=== PATIENT | female | born 1990 | race African-American/Black ===

== ENCOUNTER 2016-09-17 18:49 | Emergency (ER) | payer OTHER ==
[~2016-09-17] VITALS: Ht 154.9 cm; Wt 74.8 kg
[~2016-09-17 18:49] MED LIST: APAP500 PO; ASPIR 8181 MG PO; AZITHROMYCIN 2250 MG PO; DOXYCYCLINE 10100 MG PO; FLAGYL500 MG PO; NORCO 5-325 TA1 EACH PO; PRENATAL COMPL1 EACH PO; PRENATAL PO; TRINATE TABLET1 TAB PO
[2016-09-17 19:30] LABS: URINE BILIRUBIN NEGATIVE (Negative); URINE BLOOD 1+ (Negative); URINE COLOR YELLOW; URINE GLUCOSE-RANDOM* NEGATIVE (Negative); URINE KETONES NEGATIVE (Negative); URINE NITRITE NEGATIVE (Negative); URINE PROTEIN (DIPSTICK) TRACE (Negative); URINE UROBILINOGEN 0.2 E.U./dl (0.2-1.0)
[2016-09-17 19:42] LABS: SQUAMOUS 4-10 Moderate /LPF (0-3); URINE RBC 0-2 Rare /HPF (0-2); URINE WBC 0-5 Rare /HPF (0-5)
[2016-09-17 19:43] LABS: CASTS None Seen /LPF (None Seen); CRYSTALS None Seen /LPF (None Seen)
[2016-09-17 20:55] VITALS: BP 113/76
[2016-09-18 16:08] LABS: CHLAMYDIA TRACHOMATIS-PCR Negative (Negative); NEISSERIA GONORRHEA-PCR Negative (Negative)
== END 2016-09-17 20:56 | disposition home or self-care (01) ==
LOC: ER 18:49
PROVIDERS: Physician Assistant
DX: N89.8 Other specified noninflammatory disorders of vagina (principal); Z11.3 Encounter for screening for infections with a predominantly sexual mode of transmission

== ENCOUNTER 2017-01-11 08:40 | Emergency (ER) | payer OTHER ==
[~2017-01-11] VITALS: Ht 154.9 cm; Wt 74.8 kg
[2017-01-11 09:13] LABS: URINE BILIRUBIN NEGATIVE (Negative); URINE BLOOD TRACE (Negative); URINE COLOR YELLOW; URINE GLUCOSE-RANDOM* NEGATIVE (Negative); URINE KETONES NEGATIVE (Negative); URINE NITRITE NEGATIVE (Negative); URINE PROTEIN (DIPSTICK) TRACE (Negative); URINE SPECIFIC GRAVITY 1.025 (1.003-1.035); URINE UROBILINOGEN 0.2 E.U./dl (0.2-1.0)
[2017-01-11 09:29] LABS: SQUAMOUS >10 Many /LPF (0-3)
[2017-01-11 09:30] LABS: BACTERIA 1-9 Few /HPF (None Seen); CASTS None Seen /LPF (None Seen); CRYSTALS None Seen /LPF (None Seen); URINE RBC 0-2 Rare /HPF (0-2)
[2017-01-11] MEDS ORDERED: BACTRIM DS TAB1 EACH PO (09:39)
[2017-01-11] MEDS ORDERED: FLAGYL500 MG PO (09:39)
[2017-01-11 10:20] VITALS: BP 122/80
[2017-01-14 17:10] LABS: CHLAMYDIA TRACHOMATIS-PCR Negative (Negative); NEISSERIA GONORRHEA-PCR Negative (Negative)
== END 2017-01-11 10:22 | disposition home or self-care (01) ==
LOC: ER 08:40
PROVIDERS: Nurse Practitioner
DX: A59.01 Trichomonal vulvovaginitis (principal); N39.0 Urinary tract infection, site not specified; F10.99 Alcohol use, unspecified with unspecified alcohol-induced disorder

== ENCOUNTER → 2017-10-15 | Outpatient (CLI) | payer OTHER ==
[~2017-10-15] MED LIST changes: +BACTRIM DS TAB1 EACH PO
--- NOTE | ~2017-10-15 | 2DMMODE ---
[facility] [place] [address] 2 D/M-MODE ECHOCARDIOGRAM Name: PRABHJOT AMOS Room #: [facility]#: [id number] Admission: 10/15/17 Attend Phys: Gladys Ruiz DNP Discharge: Date of : 89 Date of Service: 10/15/17 1222 Report #: [id number] THIS REPORT FOR: //name// APPROVED REPORT Study performed: 10/15/2017 10:51:50 EXAM: Comprehensive 2D, Doppler, and color-flow Echocardiogram Patient Location: Out-Patient Status: routine BSA: 1.81 HR: 70 bpm BP: 136/84 mmHg Rhythm: NSR Other Information Study Quality: Adequate Indications Murmur 2D Dimensions RVDd: 24.90 mm LVEF(%): 61.58 (>50%) IVSd: 6.10 (7-11mm) LVOT Diam: 19.57 (18-24mm) LVDd: 49.40 mm PWd: 7.71 (7-11mm) Ascending Ao: 19.99 (22-36mm) LVDs: 33.01 (25-40mm) Aortic Root: 20.57 mm IVC: 18.00 mm Pizano's LVEF: 61.58 % Volumes Left Atrial Volume (Systole) Single Plane 4CH: 33.64 mL Single Plane 2CH: 33.68 mL LA ESV Index: 21.00 mL/m2 Aortic Valve AoV Peak Venkata.: 1.73 m/s AO Peak Gr.: 11.97 mmHg LVOT Max P.97 mmHg LVOT Max V: 1.12 m/s LENA Vmax: 1.94 cm2 Mitral Valve E/A Ratio: 2.5 MV Decel. Time: 261.07 ms [facility] [place] [address] 2 D/M-MODE ECHOCARDIOGRAM Name: PRABHJOT AMOS Room #: [facility]#: [id number] Admission: 10/15/17 Attend Phys: Gladys Ruiz DNP Discharge: Date of : 89 Date of Service: 10/15/17 1222 Report #: [id number] MV E Max Venkata.: 1.34 m/s MV A Venkata.: 0.54 m/s MV PHT: 75.71 ms IVRT: 55.36 ms Pulmonary Valve PV Peak Venkata.: 1.47 m/s PV Peak Gr.: 8.63 mmHg Pulmonary Vein P Vein S: 0.69 m/s P Vein A: 0.23 m/s P Vein D: 0.51 m/s P Vein A Dur.: 106.1 msec P Vein S/D Ratio: 1.35 Tricuspid Valve TR Peak Venkata.: 2.63 m/s RAP Estimate: 5.00 mmHg TR Peak Gr.: 27.76 mmHg PA Pressure: 33.00 mmHg Left Ventricle The left ventricle is normal size. There is normal left ventricular wall thickness. The left ventricular systolic function is normal. LVEF is 55%. The left ventricular diastolic function is normal. Right Ventricle The right ventricle is normal size. The right ventricular systolic function is normal. Atria The left atrium size is normal. The right atrium size is normal. Aortic Valve The aortic valve is normal in structure. No aortic regurgitation is present. There is no aortic valvular stenosis. Mitral Valve The mitral valve is normal in structure. Trace to mild mitral regurgitation. No evidence of mitral valve stenosis. Tricuspid Valve The tricuspid valve is normal in structure. Mild tricuspid regurgitation. Estimated PAP 33 mmHg. Pulmonic Valve The pulmonary valve is normal in structure. Mild pulmonic [address] [address] 2 D/M-MODE ECHOCARDIOGRAM Name: PRABHJOT AMOS Room #: REG [facility]#: [id number] Admission: 10/15/17 Attend Phys: Gladys Ruiz DNP Discharge: Date of : 89 Date of Service: 10/15/17 1222 Report #: [id number] regurgitation. Great Vessels The aortic root is normal in size. The ascending aorta is normal in size. IVC is normal in size and collapses >50% with inspiration. Pericardium There is no pericardial effusion. <Conclusion> The left ventricle is normal size. There is normal left ventricular wall thickness. The left ventricular systolic function is normal. The left ventricular diastolic function is normal. The right ventricle is normal size. The left atrium size is normal. The aortic valve is normal in structure. Trace to mild mitral regurgitation. Mild tricuspid regurgitation. Estimated PAP 33 mmHg. <ELECTRONICALLY SIGNED> By: Ger Meade MD 10/15/17 1222 1222 122 Ger Meade MD /INF
== END ==
LOC: CV 08:45 → EDSTATUS 08:46 → CV 10:24
DX: R01.1 Cardiac murmur, unspecified (principal); R01.2 Other cardiac sounds

== ENCOUNTER 2017-12-19 19:56 | Emergency (ER) | payer OTHER ==
[~2017-12-19] VITALS: Ht 154.9 cm; Wt 81.7 kg
[2017-12-19 20:08] VITALS: BP 129/63
[2017-12-19] MEDS ORDERED: [UNRECOGNIZED DRUG - OTHER] PO (20:14)
[2017-12-19] MEDS ORDERED: BACTRIM DS TAB1 EACH PO (22:15)
[2017-12-19] MEDS ORDERED: ULTRAM 50MG TAB50 MG PO (22:15)
== END 2017-12-20 01:34 | disposition home or self-care (01) ==
LOC: ER 19:56
DX: L02.416 Cutaneous abscess of left lower limb (principal); L03.116 Cellulitis of left lower limb

== ENCOUNTER 2018-01-30 22:37 | Emergency (ER) | payer OTHER ==
[~2018-01-30] VITALS: Ht 154.9 cm; Wt 81.7 kg
[~2018-01-30 22:37] MED LIST changes: +ULTRAM 50MG TAB50 MG PO; +[UNRECOGNIZED DRUG - OTHER] PO
[2018-01-30 22:50] VITALS: BP 158/80
[2018-01-30] MEDS ORDERED: BACTRIM DS TAB1 EACH PO (22:59)
[2018-01-30] MEDS ORDERED: IBUPROFEN 600600 M1 PO (22:59)
== END 2018-01-30 23:06 | disposition home or self-care (01) ==
LOC: ER 22:37
DX: L03.317 Cellulitis of buttock (principal); L73.9 Follicular disorder, unspecified; Z98.890 Other specified postprocedural states

== ENCOUNTER 2018-08-25 18:36 | Emergency (ER) | payer OTHER ==
[~2018-08-25] VITALS: Ht 157.5 cm; Wt 77.1 kg
[~2018-08-25 18:36] MED LIST changes: +IBUPROFEN 600600 M1 PO
[2018-08-25 19:36] LABS: URINE BILIRUBIN NEGATIVE (Negative); URINE BLOOD NEGATIVE (Negative); URINE CLARITY CLEAR; URINE COLOR YELLOW; URINE GLUCOSE-RANDOM* NEGATIVE (Negative); URINE KETONES NEGATIVE (Negative); URINE LEUKOCYTES-REFLEX TRACE (Negative); URINE NITRITE-REFLEX NEGATIVE (Negative); URINE PROTEIN (DIPSTICK) NEGATIVE (Negative); URINE SPECIFIC GRAVITY >= 1.030 (1.005-1.035); URINE UROBILINOGEN 0.2 E.U./dl (0.2-1.0)
[2018-08-25 19:45] LABS: AMP/METHAMP Negative (Negative); BARBITURATES Negative (Negative); BENZODIAZEPINES Negative (Negative); COCAINE Negative (Negative); METHADONE Negative (Negative); OPIATES Negative (Negative); PCP Negative (Negative)
[2018-08-25 19:56] LABS: ABSOLUTE NEUTROPHILS 7.6 thou/uL (1.4-8.2); BASOPHILS 0.6 % (0.0-2.0); EOSINOPHILS 1.7 % (0.0-3.0); HEMOGLOBIN 13.1 gm/dL (12.0-15.0); LYMPHOCYTES 26.5 % (24.0-44.0); MCH 26.5 pg (26.0-34.0); MCHC 32.6 g/dL (28.0-37.0); MCV 81.2 fL (80.0-100.0); MONOCYTES 7.5 % (1.0-8.0); PLATELET COUNT 264 thou/uL (150-400); POLYS 63.7 % (36.0-66.0); RBC 4.93 mil/uL (4.20-5.00); RDW 14.4 % (10.5-14.5)
[2018-08-25 20:27] LABS: ALBUMIN 3.4 g/dL (3.4-5.0); CALCIUM 8.2 mg/dL (8.5-10.1); CREATININE 0.8 mg/dL (0.6-1.0); POTASSIUM 3.3 mmol/L (3.5-5.1); TOTAL BILIRUBIN 0.6 mg/dL (<0.1-1.0); TOTAL PROTEIN 7.2 g/dL (6.4-8.2)
[2018-08-25 21:02] VITALS: BP 127/69
--- NOTE | 2018-08-26 09:06 | EKG ---
[address] [address] ELECTROCARDIOGRAM REPORT Name: DANDREMOHANPAT Rowan Room #: 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1990 Requested By: Daysi Adamson Order Number: [id number] MD: Joshua Jacobs Measurements Intervals [place] Rate: 70 P: 56 AK: 168 QRS: -4 QRSD: 92 T: 22 QT: 375 QTc: 405 Interpretive Statements Sinus arrhythmia No significant abnormality Compared to ECG 04/07/2015 01:13:56 No significant change was found Electronically Signed On 08-26-2018 9:06:05 CDT by Joshua Jacobs [email or web address] ��������������������������������������������� <ELECTRONICALLY SIGNED> ���������������������������������������� By: Joshua Jacobs MD, [facility] ��������������������������������������������� 08/26/18905 00 00 Joshua Jacobs MD, FACC /EPI
== END 2018-08-25 21:06 | disposition home or self-care (01) ==
LOC: ER 18:36
PROVIDERS: Physician Assistant
DX: F12.99 Cannabis use, unspecified with unspecified cannabis-induced disorder (principal); R42 Dizziness and giddiness; Z98.890 Other specified postprocedural states

== ENCOUNTER 2018-12-04 15:53 | Emergency (ER) | payer OTHER ==
[~2018-12-04] VITALS: Ht 154.9 cm; Wt 76.2 kg
[2018-12-04 16:11] LABS: ABSOLUTE NEUTROPHILS 7.2 thou/uL (1.4-8.2); BASOPHILS 0.3 % (0.0-2.0); EOSINOPHILS 2.4 % (0.0-3.0); HEMATOCRIT 38.6 % (37.0-47.0); HEMOGLOBIN 12.7 gm/dL (12.0-15.0); LYMPHOCYTES 22.8 % (24.0-44.0); MCH 26.9 pg (26.0-34.0); MCV 81.5 fL (80.0-100.0); MONOCYTES 6.7 % (1.0-8.0); PLATELET COUNT 267 thou/uL (150-400); POLYS 67.8 % (36.0-66.0); RBC 4.74 mil/uL (4.20-5.00); RDW 14.4 % (10.5-14.5); WBC 10.5 thou/uL (4.0-11.0)
[2018-12-04 16:28] LABS: CALCIUM 9.7 mg/dL (8.5-10.1); CREATININE 0.7 mg/dL (0.6-1.0); POTASSIUM 3.7 mmol/L (3.5-5.1)
[2018-12-04 16:49] LABS: URINE BILIRUBIN NEGATIVE (Negative); URINE BLOOD 3+ (Negative); URINE CLARITY SL CLOUDY; URINE COLOR AMBER; URINE GLUCOSE-RANDOM* NEGATIVE (Negative); URINE KETONES NEGATIVE (Negative); URINE LEUKOCYTES-REFLEX NEGATIVE (Negative); URINE NITRITE-REFLEX NEGATIVE (Negative); URINE PROTEIN (DIPSTICK) TRACE (Negative); URINE SPECIFIC GRAVITY 1.025 (1.005-1.035); URINE UROBILINOGEN 0.2 E.U./dl (0.2-1.0)
[2018-12-04 17:00] LABS: CASTS None Seen /LPF (None Seen); CRYSTALS None Seen /LPF (None Seen); SQUAMOUS 4-10 Moderate /LPF (0-3); URINE RBC >20 Many /HPF (0-2); URINE WBC-REFLEX None Seen /HPF (0-5)
[2018-12-04 17:01] LABS: BACTERIA-REFLEX 1-9 Few /HPF (None Seen)
[2018-12-04 17:59] VITALS: BP 113/79
== END 2018-12-04 18:00 | disposition home or self-care (01) ==
LOC: ER 15:53
PROVIDERS: Nurse Practitioner Family
DX: O20.0 Threatened abortion (principal); Z3A.01 Less than 8 weeks gestation of pregnancy; Z98.890 Other specified postprocedural states

== ENCOUNTER 2018-12-09 10:24 | Emergency (ER) | payer OTHER ==
[~2018-12-09] VITALS: Ht 154.9 cm; Wt 76.2 kg
[2018-12-09 10:25] VITALS: BP 114/53
== END 2018-12-09 11:05 | disposition home or self-care (01) ==
LOC: ER 10:24
DX: O20.0 Threatened abortion (principal); Z98.890 Other specified postprocedural states

== ENCOUNTER → 2019-12-30 | Outpatient (CLI) | payer OTHER | LOC: ULTRA 13:06 | PROVIDERS: ATTEND Nurse Practitioner | DX: E04.2 Nontoxic multinodular goiter (principal); R22.1 Localized swelling, mass and lump, neck ==